=== PATIENT | female | born 1980 | race Asian ===

== ENCOUNTER 2019-01-12 23:16 | Emergency (ER) | payer MEDICAID ==
[~2019-01-12] VITALS: Ht 152.4 cm; Wt 68.2 kg
[2019-01-13 02:05] LABS: GLUCOSE,POINT OF CARE 85 MG/DL (70-110)
[2019-01-13 02:34] LABS: BASOPHILS % (AUTO) 1.1 % (0.0-2.0); EOSINOPHILS % (AUTO) 4.6 % (1.0-6.0); HEMATOCRIT 40.9 % (36-46); HEMOGLOBIN 13.4 g/dL (12.0-16.0); LYMPHOCYTES # (AUTO) 2.5 K/uL (1.0-4.8); LYMPHOCYTES % (AUTO) 33.8 % (22.0-44.0); MEAN CORPUSCULAR HEMOGLOBIN 32.6 pg (26.0-34.0); MEAN CORPUSCULAR HGB CONC 32.8 G/dL (31.0-37.0); MEAN CORPUSCULAR VOLUME 100 fL (80-100); MONOCYTES # (AUTO) 0.8 K/uL (0.1-1.0); MONOCYTES % (AUTO) 10.7 % (2.0-9.0); NEUTROPHILS # (AUTO) 3.7 K/uL (1.8-7.7); NEUTROPHILS % (AUTO) 49.8 % (40.0-70.0); PLATELET COUNT (AUTO) 228 K/uL (150-450); RED BLOOD CELL COUNT(AUTO) 4.11 MIL/uL (4.00-5.20); RED CELL DISTRIBUTION WIDTH 12.8 % (11.5-14.5)
[2019-01-13 02:41] LABS: ANION GAP 10 mmol/L (8-16); CALCIUM, TOTAL 8.9 mg/dL (8.8-10.5); CARBON DIOXIDE 25 mmol/L (22-29); CHLORIDE 104 mmol/L (98-107); CREATININE 0.79 mg/dL (0.60-1.30); GLOMERULAR FILTR. RATE CALC > 60 mL/min (>60); GLUCOSE,RANDOM 95 mg/dL (70-110); POTASSIUM 3.5 mmol/L (3.5-5.1); SODIUM SERUM 139 mmol/L (136-145); UREA NITROGEN, BLOOD 15 mg/dL (7-18)
[2019-01-13 02:55] LABS: ALANINE AMINOTRANSFERASE 20 U/L (12-78); ALBUMIN 3.5 g/dL (3.4-5.0); ALKALINE PHOSPHATASE 53 U/L (46-116); ASPARTATE AMINOTRANSFERASE 14 U/L (15-37); BILIRUBIN,TOTAL 0.3 mg/dL (0.1-1.0); HCG,QUANTITATIVE < 1 mIU/mL (0-6)
[2019-01-13 03:00] VITALS: BP 145/80
== END 2019-01-13 04:43 | disposition home or self-care (01) ==
LOC: EMS 23:18
DX: K52.9 Noninfective gastroenteritis and colitis, unspecified (principal); R53.1 Weakness

== ENCOUNTER 2022-06-07 08:53 | Emergency (ER) | payer MEDICAID ==
[~2022-06-07] VITALS: Ht 152.4 cm; Wt 75.0 kg
[2022-06-07 09:12] LABS: COVID AG,FIA SOURCE NASAL SWAB
[2022-06-07 09:50] LABS: INFLUENZA TYPE A NEGATIVE FOR TYPE A (NEGATIVE); INFLUENZA TYPE B NEGATIVE FOR TYPE B (NEGATIVE)
[2022-06-07] MEDS ORDERED: ALBUTEROL SULFATE HFA 90 MCG/PUFF 8 GM INHALER IH ONE (11:45)
[2022-06-07 11:55] VITALS: BP 121/76
== END 2022-06-07 12:07 | disposition home or self-care (01) ==
LOC: EMS 09:09
DX: J06.9 Acute upper respiratory infection, unspecified (principal); Z20.822 Contact with and (suspected) exposure to COVID-19; Z98.890 Other specified postprocedural states
CPT/HCPCS: 87804; 94640; 99283; J3535

== ENCOUNTER 2022-12-31 05:03 | Emergency (ER) | payer MEDICAID ==
[~2022-12-31] VITALS: Ht 152.4 cm; Wt 59.1 kg
[2022-12-31 05:10] VITALS: TEMP 98.5
[2022-12-31 06:15] LABS: COVID AG,FIA SOURCE NASOPHARYNGEAL
[2022-12-31] MEDS ORDERED: ALBU18HF12 IH (07:10)
[2022-12-31 07:45] VITALS: BP 122/72; PULSE 77; RESP 14
== END 2022-12-31 08:05 | disposition home or self-care (01) ==
LOC: EMS 05:03
DX: J02.8 Acute pharyngitis due to other specified organisms (principal); Z98.890 Other specified postprocedural states; Z20.822 Contact with and (suspected) exposure to COVID-19
CPT/HCPCS: 87430; 99283